=== PATIENT | female | born 1980 | race Caucasian/White ===

== ENCOUNTER → 2016-07-06 | Outpatient (CLI) | payer OTHER ==
[~2016-07-06] MED LIST: ADVI200C5 PO
--- NOTE | 2016-07-06 18:26 | REP ---
Internal auditory canal CT study without contrast: History: Hearing loss right ear unilateral. Technique: Helical scanning is acquired and 1 mm axial images are generated. Coronal multiplanar reformation images are generated and reviewed. High resolution bone algorithm was utilized. CT findings: The external auditory canal and internal auditory canal are normal on the right. Middle ear cavity is fully aerated. Ossicular chain is unremarkable. Cochlear and vestibular apparatus appears normal. Mastoid aeration is normal. There is no evidence of mastoiditis. On the left, mastoid aeration is normal. A normal internal auditory canal and external auditory canal are visible. The middle ear is aerated. Cochlear and vestibular apparatus are unremarkable. No intracranial abnormality is seen. Impression: Unremarkable internal auditory canal CT study. Signed by Mukesh Hess MD 07/06/2016 07:02 P
== END ==
LOC: M RAD 17:15
PROVIDERS: ATTEND Otolaryngology
DX: H90.41 Sensorineural hearing loss, unilateral, right ear, with unrestricted hearing on the contralateral side (principal)